=== PATIENT | male | born 1990 | race Caucasian/White ===

== ENCOUNTER 2019-10-09 19:12 | Emergency (ER) | payer SELFPAY ==
[~2019-10-09] VITALS: Ht 185.4 cm; Wt 73.0 kg
--- NOTE | 2019-10-09 19:23 | NUR ---
PT CODE 250 IN ICU WHILE VISITING FATHER. PT DIZZY AND PASSED OUT FOR 1-2 SECONDS, BROTHER CAUGHT PT, DENIES HITTING HEAD. PT ATE A MEAL AT 1030 TODAY AND THEN DROVE ABOUT 10HRS TO VISIT FATHER IN ICU. PT DRANK TWO ENERGY DRINKS AND MULTIPLE COFFEES ON DRIVE. EKG COMPLETE. PT CONNECTED TO MONITORING. BROTHER AT BEDSIDE. MD AT BEDSIDE, AWAITING ORDERS AT THIS TIME.
--- NOTE | 2019-10-09 19:25 | NUR ---
RECEIVED VERBAL ORDER FROM MD FOR 1 LITER IV NS BOLUS, ONCE.
--- NOTE | 2019-10-09 19:37 | NUR ---
IV START. IVF INFUSING PER ORDER.
[2019-10-09 19:54] VITALS: BP 120/84
--- NOTE | 2019-10-09 19:58 | NUR ---
ORTHOSTATIC BP COMPLETE. PT DENIES DIZZINESS OR LIGHT HEADEDNESS.
[2019-10-09 20:05] LABS: ALBUMIN 4.6 g/dL (3.4-5.0); ANION GAP 7 mmol/L (5-15); CALCIUM 9.4 mg/dL (8.5-10.1); CHLORIDE 103 mmol/L (98-107); CREATININE 1.18 mg/dL (0.7-1.3)
[2019-10-09 20:07] LABS: BASOPHILS # (AUTO) 0.05 x10^3/uL (0-0.1); BASOPHILS % (AUTO) 0 % (0-1); EOSINOPHILS # (AUTO) 0.08 x10^3/uL (0-0.4); EOSINOPHILS % (AUTO) 1 % (1-7); LYMPHOCYTES # (AUTO) 4.92 x10^3/uL (1-3.4); LYMPHOCYTES % (AUTO) 39 % (22-44); MD NO; MEAN CORPUSCULAR HEMOGLOBIN 30.1 pg (27.5-34.5); MEAN CORPUSCULAR HGB CONC 33.3 g/dL (33.2-36.2); MEAN CORPUSCULAR VOLUME 90.5 fL (81-97); MEAN PLATELET VOLUME 8.1 fL (7.4-10.4); MONOCYTES # (AUTO) 0.78 x10^3/uL (0.2-0.8); MONOCYTES % (AUTO) 6 % (2-9); NEUTROPHILS # (AUTO) 6.86 x10^3/uL (1.8-6.8); NEUTROPHILS % (AUTO) 54 % (42-75); PLATELET COUNT 310 x10^3/uL (130-400); RED BLOOD COUNT 4.71 x10^6/uL (4.38-5.82); RED CELL DISTRIBUTION WIDTH 12.9 % (9.4-14.8)
--- NOTE | 2019-10-09 20:21 | NUR ---
ALL RESULTS ARE BACK AT THIS TIME. CHART UP FOR RECHECK.
[2019-10-09] MEDS ORDERED: POTASSIUM CHLORIDE 20 MEQ TAB.ER.PRT ONE (20:39)
--- NOTE | 2019-10-09 20:49 | NUR ---
MEDS ADMIN PER DEC.
[2019-10-09] MEDS ORDERED: POTASSIUM CHLORIDE 20 MEQ TAB.ER.PRT PO ONE (21:00)
[2019-10-09] MEDS ORDERED: SODIUM CHLORIDE 0.9% 1,000ML IVBOLUS ONE (21:00)
== END 2019-10-09 21:10 | disposition home or self-care (01) ==
LOC: ED 20:50
DX: E87.6 Hypokalemia (principal); R55 Syncope and collapse; F17.200 Nicotine dependence, unspecified, uncomplicated
CPT/HCPCS: 36415; 80048; 82040; 82962; 85025; 93005; 99284; J7030